=== PATIENT | female | born 1980 | race African-American/Black ===

== ENCOUNTER 2019-06-09 07:42 | Emergency (ER) | payer MEDICAID ==
[~2019-06-09] VITALS: Ht 167.6 cm; Wt 90.7 kg
--- NOTE | 2019-06-09 07:47 | NUR ---
ED Nurse Note:pt. was BIBA from home with c/o abdominal pain nausea and vomiting bile since this morning, VSS, ambulatory, A/Ox4 ,blood was sent to labs, placed on radiation monitor
[2019-06-09 07:52] VITALS: BP 124/60
[2019-06-09] MEDS ORDERED: Mylanta II UD 30ml ORAL ONE (08:00)
[2019-06-09] MEDS ORDERED: Lidocaine 2% Visc 15ml soln ORAL ONE (08:00)
[2019-06-09] MEDS: Capsaicin 0.075% Cream TOPIC ONE ×2 (08:10→08:53)
--- NOTE | 2019-06-09 08:22 | Emergency Room Report ---
History of Present Illness General Chief Complaint: Abdominal Pain Source: Patient Present Illness HPI This patient states that she has a history of gastroparesis. She states that she was diagnosed with gastroparesis in January of this year. She states that she had been living in [place] and getting all of her care there. She states that she recently moved into [place] and doesn't have a PCP yet. She states that her symptoms of gastroparesis started this am. These symptoms are n/v and abdominal pain. She states that she did have a normal BM this am. She denies recent illness or change in her symptoms. She denies dysuria or hematuria. She denies abnl vaginal discharge. She admits to using Marijuana regularly. She has no other complaints. Allergies: Coded Allergies: No Known Allergies (Unverified , 06/09/19) Patient History Past Medical History: see triage record, other - RA, fibromyalgia, gastroparesis Social History: Reports: drug use - THC; Denies: smoking, alcohol use Reviewed Nursing Documentation: PMH: Agreed; PSxH: Agreed Nursing Documentation-PMH Past Medical History: No History, Except For Hx Cardiac Problems: No - gastrotitis Review of Systems All Other Systems: negative except mentioned in HPI Physical Exam Vital Signs Date Time Temp Pulse Resp B/P (MAP) Pulse Ox O2 Delivery O2 Flow Rate FiO2 06/09/19 07:37 97.5 88 17 124/60 (81) 100 Sp02 EP Interpretation: reviewed, normal General Appearance: no apparent distress, alert, GCS 15, non-toxic Head: normocephalic, atraumatic Eyes: bilateral eye normal inspection, bilateral eye PERRL ENT: hearing grossly normal, normal pharynx, no angioedema, normal voice Neck: full range of motion, supple/symm/no masses Respiratory: chest non-tender, lungs clear, normal breath sounds, no respiratory distress, no retraction, no accessory muscle use, speaking full sentences Cardiovascular #1: regular rate, rhythm, no edema Gastrointestinal: normal bowel sounds, soft, non-distended, no guarding, no rebound, tenderness - TTP diffusely Rectal: deferred Musculoskeletal: back normal, gait/station normal, normal range of motion, non- tender Neurologic: alert, oriented x3, responsive, motor strength/tone normal, sensory intact, speech normal Psychiatric: judgement/insight normal, memory normal, mood/affect normal, no suicidal/homicidal ideation Medical Decision Making Diagnostic Impression: Primary Impression: Cannabis hyperemesis syndrome concurrent with and due to cannabis abuse ER Course I suspect this patient has cannabis hyperemesis syndrome. Further discussion with the patient and she admits to heavier cannabis use. Further, I suspected this patient had a heavy cannabis use given the odor of cannabis that I detected on physical exam. Also, the patient reported that her symptoms improved when she would take a hot shower. Patient was given Pepcid and a GI cocktail to include viscous lidocaine and Mylanta. Capsaicin cream was placed on the patient's abdomen and she is given IV Zofran and IV fluids. Patient's abdominal exam overall was benign and nonsurgical. I did not feel that imaging was indicated. Laboratory work-up to include CBC, CMP and urinalysis are unremarkable. Patient's drug screen was positive for marijuana as suspected. I educated the patient on cannabis hyperemesis syndrome. I educated her that the only way to "cure" this syndrome is to stop using cannabis. She indicated understanding. She had resolution of her symptoms at discharge. She is given close return precautions and follow-up instructions. Laboratory Tests Test 06/09/19 07:47 06/09/19 08:30 White Blood Count 6.3 K/UL (4.8-10.8) Red Blood Count 4.93 M/UL (4.20-5.40) Hemoglobin 14.8 G/DL (12.0-16.0) Hematocrit 41.9 % (37.0-47.0) Mean Corpuscular Volume 85 FL (80-99) Mean Corpuscular Hemoglobin 29.9 PG (27.0-31.0) Mean Corpuscular Hemoglobin Concent 35.3 G/DL (32.0-36.0) Red Cell Distribution Width 11.5 % (11.6-14.8) L Platelet Count 218 K/UL (150-450) Mean Platelet Volume 8.3 FL (6.5-10.1) Neutrophils (%) (Auto) 71.3 % (45.0-75.0) Lymphocytes (%) (Auto) 21.6 % (20.0-45.0) Monocytes (%) (Auto) 5.0 % (1.0-10.0) Eosinophils (%) (Auto) 0.8 % (0.0-3.0) Basophils (%) (Auto) 1.4 % (0.0-2.0) Sodium Level 141 MMOL/L (136-145) Potassium Level 3.9 MMOL/L (3.5-5.1) Chloride Level 106 MMOL/L (98-107) Carbon Dioxide Level 23 MMOL/L (21-32) Anion Gap 12 mmol/L (5-15) Blood Urea Nitrogen 13 mg/dL (7-18) Creatinine 1.0 MG/DL (0.55-1.30) Estimate Glomerular Filtration Rate > 60 mL/min (>60) Glucose Level 113 MG/DL (74-106) H Calcium Level 8.7 MG/DL (8.5-10.1) Total Bilirubin 0.3 MG/DL (0.2-1.0) Aspartate Amino Transferase (AST) 11 U/L (15-37) L Alanine Aminotransferase (ALT) 20 U/L (12-78) Alkaline Phosphatase 78 U/L (46-116) Total Protein 7.8 G/DL (6.4-8.2) Albumin 3.9 G/DL (3.4-5.0) Globulin 3.9 g/dL Albumin/Globulin Ratio 1.0 (1.0-2.7) Lipase 205 U/L (73-393) Urine Color Pale yellow Urine Appearance Clear Urine pH 8 (4.5-8.0) Urine Specific [place] 1.015 (1.005-1.035) Urine Protein Negative (NEGATIVE) Urine Glucose (UA) Negative (NEGATIVE) Urine Ketones Negative (NEGATIVE) Urine Blood Negative (NEGATIVE) Urine Nitrite Negative (NEGATIVE) Urine Bilirubin Negative (NEGATIVE) Urine Urobilinogen Normal MG/DL (0.0-1.0) Urine Leukocyte Esterase 1+ (NEGATIVE) H Urine RBC 0-2 /HPF (0 - 2) Urine WBC 0-2 /HPF (0 - 2) Urine Squamous Epithelial Cells Few /LPF (NONE/OCC) Urine Amorphous Sediment Moderate /LPF (NONE) H Urine Bacteria Few /HPF (NONE) Urine HCG, Qualitative Negative (NEGATIVE) Urine Opiates Screen Negative (NEGATIVE) Urine Barbiturates Screen Negative (NEGATIVE) Phencyclidine (PCP) Screen Negative (NEGATIVE) Urine Amphetamines Screen Negative (NEGATIVE) Urine Benzodiazepines Screen Negative (NEGATIVE) Urine Cocaine Screen Negative (NEGATIVE) Urine Marijuana (THC) Screen Positive (NEGATIVE) H Last Vital Signs Date Time Temp Pulse Resp B/P (MAP) Pulse Ox O2 Delivery O2 Flow Rate FiO2 06/09/19 07:52 97.5 55 17 124/60 100 Disposition: HOME, SELF-CARE Condition: Improved Patient Instructions: Abdominal Pain, Adult Anahi Nichole DO Jun 09, 2019 08:22
[2019-06-09 08:28] LABS: BASOPHILS % (AUTO) 1.4 % (0.0-2.0); EOSINOPHILS % (AUTO) 0.8 % (0.0-3.0); HEMATOCRIT 41.9 % (37.0-47.0); HEMOGLOBIN 14.8 G/DL (12.0-16.0); LYMPHOCYTES % (AUTO) 21.6 % (20.0-45.0); MEAN CORPUSCULAR VOLUME 85 FL (80-99); NEUTROPHILS % (AUTO) 71.3 % (45.0-75.0); PLATELET COUNT 218 K/UL (150-450); RED BLOOD COUNT 4.93 M/UL (4.20-5.40); RED CELL DISTRIBUTION WIDTH 11.5 % (11.6-14.8); WHITE BLOOD COUNT 6.3 K/UL (4.8-10.8)
[2019-06-09 08:31] LABS: ANION GAP 12 mmol/L (5-15); BLOOD UREA NITROGEN 13 mg/dL (7-18); CALCIUM 8.7 MG/DL (8.5-10.1); CARBON DIOXIDE 23 MMOL/L (21-32); CHLORIDE 106 MMOL/L (98-107); POTASSIUM 3.9 MMOL/L (3.5-5.1); SODIUM 141 MMOL/L (136-145)
[2019-06-09 08:35] LABS: ALANINE AMINOTRANSFERASE 20 U/L (12-78); ALBUMIN 3.9 G/DL (3.4-5.0); ALKALINE PHOSPHATASE 78 U/L (46-116); ASPARTATE AMINO TRANSFERASE 11 U/L (15-37); BILIRUBIN,TOTAL 0.3 MG/DL (0.2-1.0)
--- NOTE | 2019-06-09 08:44 | NUR ---
ED Nurse Note:urine sent to labs, pt. refused topical cream -MD notified
[2019-06-09 08:52] LABS: APPEARANCE,URINE CLEAR; BILIRUBIN, URINE NEGATIVE (NEGATIVE); COLOR,URINE PALE YELLOW; GLUCOSE, URINE (UA) NEGATIVE (NEGATIVE); KETONES,URINE NEGATIVE (NEGATIVE); LEUKOCYTE ESTERASE ,URINE 1+ (NEGATIVE); NITRITE,URINE NEGATIVE (NEGATIVE); PH,URINE 8 (4.5-8.0); PROTEIN,URINE NEGATIVE (NEGATIVE); UROBILINOGEN,URINE NORMAL MG/DL (0.0-1.0)
[2019-06-09 09:47] VITALS: BP 120/64
[2019-06-09] MEDS ORDERED: Metoclopramide 10mg/2ml Inj ONE (10:43)
[2019-06-09] MEDS ORDERED: Metoclopramide 10mg/2ml Inj IVP ONE (10:45)
[2019-06-09] MEDS ORDERED: REGLAN10 MG ORAL (11:20)
[2019-06-09 11:30] VITALS: BP 118/69
--- NOTE | 2019-06-09 11:30 | NUR ---
ER DISCHARGE NOTE: Patient is cleared to be discharged per ERMD, pt is aox4, on room air, with stable vital signs. pt was given dc and prescription instructions, pt was able to verbalize understanding, pt id band and iv site removed without complications. pt is able to ambulate with steady gait. pt took all belongings.
== END 2019-06-09 11:30 | disposition home or self-care (01) ==
LOC: EDBD 07:42 → EMR 08:05
DX: F12.188 Cannabis abuse with other cannabis-induced disorder (principal); R11.10 Vomiting, unspecified; K31.84 Gastroparesis; M79.7 Fibromyalgia
CPT/HCPCS: 36415; 80053; 80307; 81003; 81025; 83690; 85025; 96361; 96374; 96375; J2405; J2765; S0028; Z7502; 99284; J7030

== ENCOUNTER 2019-07-18 04:46 | Emergency (ER) | payer MEDICAID ==
[~2019-07-18] VITALS: Ht 170.2 cm; Wt 90.7 kg
[~2019-07-18 04:46] MED LIST: REGLAN10 MG ORAL
--- NOTE | 2019-07-18 04:53 | NUR ---
ED Nurse Note: Patient brought in by ambulance with complaints of abdominal pain x 1 month. Patient reports vomitting thre times today.
[2019-07-18 04:55] VITALS: BP 152/84
[2019-07-18] MEDS ORDERED: Promethazine HCl 50 MG in NS 110 ML IVPB ONE ×4 (05:15)
[2019-07-18] MEDS ORDERED: Morphine Sulfate 4mg/ml Inj (IV USE ONLY) IVP ONE (05:15)
[2019-07-18] MEDS ORDERED: Morphine Sulfate 10mg/ml Inj IVP ONE (05:15)
[2019-07-18] MEDS ORDERED: Promethazine 50mg/ml Inj IM ONE (05:15)
[2019-07-18] MEDS ORDERED: Haloperidol Lactate 5 MG in D5W 55 ML IVPB ONE (05:15)
--- NOTE | 2019-07-18 05:24 | Emergency Room Report ---
History of Present Illness General Chief Complaint: Abdominal Pain Source: Patient Present Illness HPI This is a 39-year-old female with a history of gastroparesis, cyclic vomiting syndrome and fibromyalgia. She presents to the ER with chief complaint abdominal pain. Onset last night. She has severe pain 10 out of 10. Has nausea vomiting. No diarrhea. Nothing made it better. Nothing made it worse. She told EMS and triage nurse that she has not been anywhere for the last few months. It turned out that she was at [facility] yesterday for "allergic reaction." She was there 2 days prior for abdominal pain and had CT scan done and labs work. They were normal. She was given Haldol. She claims he was allergic to this. She has been to [facility] multiple times in the past. She says she recently moved to this area. She denies any fever or chills. This is similar to previous episode. Allergies: Coded Allergies: No Known Allergies (Unverified , 06/09/19) Patient History Past Medical History: see triage record, old chart reviewed Past Surgical History: other Pertinent Family History: none Social History: Denies: smoking Now: No Immunizations: other Reviewed Nursing Documentation: PMH: Agreed; PSxH: Agreed Nursing Documentation-PMH Past Medical History: No History, Except For Hx Cardiac Problems: No - gastrotitis Review of Systems Eye: Denies: eye pain, blurred vision ENT: Denies: ear pain, nose congestion, throat swelling Respiratory: Denies: cough, shortness of breath Cardiovascular: Denies: chest pain, palpitations Gastrointestinal: Reports: abdominal pain, nausea, vomiting; Denies: diarrhea Musculoskeletal: Denies: back pain, joint pain Skin: Denies: rash Neurological: Denies: headache, numbness Endocrine: Denies: increased thirst, increased urine Hematologic/Lymphatic: Denies: easy bruising All Other Systems: negative except mentioned in HPI Physical Exam Vital Signs Date Time Temp Pulse Resp B/P (MAP) Pulse Ox O2 Delivery O2 Flow Rate FiO2 07/18/19 04:49 97.9 86 20 152/84 (106) 98 Room Air Vitals with high blood pressure Sp02 EP Interpretation: reviewed, normal General Appearance: well appearing, no apparent distress, alert Head: normocephalic, atraumatic Eyes: bilateral eye PERRL, bilateral eye EOMI ENT: hearing grossly normal, normal pharynx Neck: full range of motion, supple, no meningismus Respiratory: chest non-tender, lungs clear, normal breath sounds Cardiovascular #1: regular rate, rhythm, no murmur Gastrointestinal: no mass, no organomegaly, no bruit, non-distended, tenderness - Diffuse, decreased bowel sounds Musculoskeletal: back normal, normal range of motion, gait/station normal, other - Patient has multiple IV jara on her arms Psychiatric: mood/affect normal Medical Decision Making Diagnostic Impression: Primary Impression: Abdominal pain Qualified Codes: R10.84 - Generalized abdominal pain Additional Impression: Cyclic vomiting syndrome ER Course Presents with abdominal pain with cyclic vomiting syndrome. Patient given IV fluid and pain medication and antiemetics. At this moment in time, I see no need for further work-up with blood work or CT scan. She has multiple CT scans in the past. She had recent blood work to 3 days ago. They were unremarkable. I suspect opiate dependence and probable withdrawal symptoms since she is not getting pain medication as an outpatient. The cannabis induced cyclic vomiting syndrome also. Will discharge home once she received fluids and pain medication. I spoke with the ER doctor at [facility] who gave me CT scan report and labs couple days ago. I also spoke with the charge nurse at [facility] in [place]. She has been there numerous times and sometimes consecutive days and then twice a day. Last Vital Signs Date Time Temp Pulse Resp B/P (MAP) Pulse Ox O2 Delivery O2 Flow Rate FiO2 07/18/19 04:55 97.9 86 20 152/84 98 Room Air Status: improved Disposition: HOME, SELF-CARE Condition: Stable Scripts Promethazine Hcl* (PHENERGAN*) 25 Mg Tablet 25 MG ORAL Q6H, #15 TAB 0 Refills Prov: Pipo Orozco MD 07/18/19 Referrals: NOT CHOSEN IPA/,REFERRING (PCP) Additional Instructions: Abstain from marijuana. Follow-up with your doctor in 7 days. You may need referral to see GI doctor. Return if symptoms worsen. Pipo Orozco MD Jul 18, 2019 05:24
[2019-07-18] MEDS ORDERED: PHENERGAN25 M1 ORAL (05:26)
--- NOTE | 2019-07-18 05:38 | NUR ---
ED Nurse Note: Patient tolerated medication administration well. patient appears relaxed and is no longer moaning, screaming or crying aloud. patient provided with a warm blanket for comfort.
--- NOTE | 2019-07-18 07:03 | NUR ---
ED Nurse Note: Patient cleared for discharge, IV removed, ID band removed. Patient verbalized understanding of follow up instructions. Patient discharged in stable conditions.
[2019-07-18 07:05] VITALS: BP 152/84
== END 2019-07-18 07:07 | disposition home or self-care (01) ==
LOC: EDUNIT# 04:46 → EDBD 04:46 → EMR 05:02
DX: R10.84 Generalized abdominal pain (principal); R11.15 Cyclical vomiting syndrome unrelated to migraine; M79.7 Fibromyalgia
CPT/HCPCS: 96361; 96365; 96375; 96376; J1630; J2270; J2550; J7030; Z7502; 99284